=== PATIENT | female | born 1945 | race Asian ===

== ENCOUNTER 2017-09-03 18:34 | Emergency (ER) | payer OTHER ==
[~2017-09-03] VITALS: Ht 154.9 cm; Wt 44.0 kg
[~2017-09-03 18:34] MED LIST: ALEN35TA30; AMLO5TAB PO; LOSA25TA14 PO; METF500T2 PO; PRAV10TA40
[2017-09-03 18:36] VITALS: BP 115/67
--- NOTE | 2017-09-03 19:15 | NUR ---
PATIENT PRESENTS TO ED WITH COUGH X1 WK, FEVER AND CHILLS AT HOME X3 DAYS. RIGHT LOWER LOBE CRACKLES HEARD. PT AFEBRILE AT THIS TIME. DENIES N/V/D; SKIN IS PINK/WARM/DRY; AAOX4 WITH EVEN AND STEADY GAIT; LUNGS CLEAR BL; HR EVEN AND REGULAR; PT DENIES CP, SOB, AT THIS TIME; PATIENT STATES PAIN OF 0/10 AT THIS TIME; VSS; PATIENT POSITIONED FOR COMFORT; HOB ELEVATED; BEDRAILS UP X2; BED DOWN. ER MD MADE AWARE OF PT STATUS. CONTINUE TO MONITOR.
[2017-09-03 20:15] VITALS: BP 115/67
--- NOTE | 2017-09-03 20:15 | NUR ---
Patient discharged with v/s stable, afebrile, no SOB or dyspnea. Written and verbal after care instructions given and explained. Patient alert, oriented and verbalized understanding of instructions. Ambulatory with steady gait. All questions addressed prior to discharge. ID band removed. Patient advised to follow up with PMD. Rx of PREDNISONE AND AXIRTHROMYCIN given. Patient educated on indication of medication including possible reaction and side effects. Opportunity to ask questions provided and answered.
== END 2017-09-03 20:15 | disposition home or self-care (01) ==
LOC: MED 18:34
DX: R05 Cough (principal); R50.9 Fever, unspecified; I10 Essential (primary) hypertension; E11.9 Type 2 diabetes mellitus without complications; Z79.84 Long term (current) use of oral hypoglycemic drugs; Z88.6 Allergy status to analgesic agent
CPT/HCPCS: 71045; 82948; 99283; Q0092

== ENCOUNTER 2017-11-12 21:43 | Emergency (ER) | payer OTHER ==
[~2017-11-12] VITALS: Ht 152.4 cm; Wt 45.1 kg
[2017-11-12 21:43] VITALS: BP 134/81
--- NOTE | 2017-11-12 21:54 | NUR ---
PT AMBUALTED TO ER BED 10.
[2017-11-12] MEDS ORDERED: METF-430 PO (21:56)
--- NOTE | 2017-11-12 22:00 | NUR ---
PT PRESENTS TO ER C/O INTERMITTENT LEFT SIDE CHEST PAIN THAT RADIATES TO BACK X1 WEEK. PT HAS BEEN TAKING TYLENOL AT HOME FOR PAIN W/ MINIMAL RELIEF. NO SOB, BL BS CLEAR THROUGH OUT. PT IS LAYING IN BED, APPEARS TO BE IN NO APPARENT DISTRESS. PMH DM
[2017-11-12 22:28] LABS: BASOPHILS # (AUTO) 0.1 K/uL (0.00-0.22); BASOPHILS % (AUTO) 2.4 % (0.0-2.0); EOSINOPHILS # (AUTO) 0.4 K/uL (0-0.4); EOSINOPHILS % (AUTO) 7.5 % (0.0-4.0); HEMATOCRIT 42.4 % (36-48); HEMOGLOBIN 13.5 g/dL (12.0-16.0); LYMPHOCYTES # (AUTO) 1.7 K/uL (2.5-16.5); LYMPHOCYTES % (AUTO) 29.4 % (20.5-51.1); MEAN CORPUSCULAR HEMOGLOBIN 29 pg (27-31); MEAN CORPUSCULAR HGB CONC 32 g/dL (33-37); MEAN CORPUSCULAR VOLUME 89.8 fL (80-94); MONOCYTES # (AUTO) 0.6 K/uL (0.8-1.0); MONOCYTES % (AUTO) 10.3 % (1.7-9.3); NEUTROPHILS # (AUTO) 2.9 K/uL (1.8-7.7); NEUTROPHILS % (AUTO) 50.4 % (42.2-75.2); PLATELET COUNT (AUTO) 229 K/uL (140-450); RED BLOOD CELL COUNT(AUTO) 4.72 MIL/uL (4.20-5.40); RED CELL DISTRIBUTION WIDTH 13.4 % (11.6-13.7); WHITE BLOOD COUNT (AUTO) 5.8 K/uL (4.8-10.8)
[2017-11-12] MEDS ORDERED: MORPHINE SULFATE 4 MG/ML SYR IVP ONE (22:35)
[2017-11-12 22:45] LABS: ANION GAP 11.4 (8-16); CARBON DIOXIDE 29.3 mmol/L (21-32); CHLORIDE 105 mmol/L (98-107); GLUCOSE 224 mg/dL (74-106); POTASSIUM 4.7 mmol/L (3.5-5.1); SODIUM SERUM 141 mmol/L (136-145); UREA NITROGEN, BLOOD 15 mg/dL (7-18)
[2017-11-12 22:52] LABS: ALBUMIN 3.8 g/dL (3.4-5.0); ASPARTATE AMINOTRANSFERASE 13 U/L (15-37); TOTAL BILIRUBIN 0.3 mg/dL (0.0-1.0)
[2017-11-12 22:53] LABS: PROTHROMBIN TIME 10.2 secs (10.8-13.4)
[2017-11-12 23:17] VITALS: BP 130/76
--- NOTE | 2017-11-12 23:18 | NUR ---
Patient discharged with v/s stable. Written and verbal after care instructions given and explained. Patient alert, oriented and verbalized understanding of instructions. Ambulatory with steady gait. All questions addressed prior to discharge. ID band removed. Patient advised to follow up with PMD. Rx of prednisone, norco given. Patient educated on indication of medication including possible reaction and side effects. Opportunity to ask questions provided and answered.
== END 2017-11-12 23:18 | disposition home or self-care (01) ==
LOC: MED 21:43
DX: R07.89 Other chest pain (principal); R05 Cough; R06.02 Shortness of breath; E11.9 Type 2 diabetes mellitus without complications; I10 Essential (primary) hypertension; Z79.84 Long term (current) use of oral hypoglycemic drugs; Z79.899 Other long term (current) drug therapy; Z88.8 Allergy status to other drugs, medicaments and biological substances
CPT/HCPCS: 36415; 71045; 80053; 83880; 84484; 85025; 85610; 85730; 93005; 96374; 99285; J2270; Q0092

== ENCOUNTER 2023-09-24 20:06 | Emergency (ER) | payer OTHER ==
[~2023-09-24] VITALS: Ht 154.9 cm; Wt 41.7 kg
[~2023-09-24 20:06] MED LIST changes: -ALEN35TA30; +ALEN35TA54; -LOSA25TA14 PO; +LOSA25TA32 PO; +METF-430 PO; -METF500T2 PO
[2023-09-24 20:29] VITALS: BP 132/70; PULSE 81; RESP 16; TEMP 96.9; O2SAT 97
[2023-09-24 20:47] LABS: APPEARANCE,URINE CLEAR (CLEAR); BILIRUBIN,URINE NEGATIVE (NEGATIVE); BLOOD, URINE 3+ (NEGATIVE); COLOR,URINE YELLOW (YELLOW); LEUKOCYTE ESTERASE ,URINE 3+ (NEGATIVE); NITRITE, URINE NEGATIVE (NEGATIVE); PROTEIN,URINE NEGATIVE (NEGATIVE); UGLUCOSE NEGATIVE (NEGATIVE); UROBILINOGEN,URINE 0.2 EU/dL (0.2 - 1)
[2023-09-24 20:58] LABS: BACTERIA,URINE 10-30 (MOD) /HPF (None Seen); RBC,URINE 11-20 (MOD) /HPF (0-5); SQUAMOUS EPITHELIAL CELL,UR 0-3 (FEW) /LPF (0-3 (FEW))
[2023-09-24] MEDS ORDERED: CEFP200T20 PO (21:31)
[2023-09-24] MEDS ORDERED: cefTRIAXone 1,000 MG VIAL ONE (21:35)
[2023-09-24] MEDS: NACL 0.9% 500 ML IV ONE (22:06)
== END 2023-09-24 22:57 | disposition home or self-care (01) ==
LOC: MED 20:06
DX: N39.0 Urinary tract infection, site not specified (principal); R50.9 Fever, unspecified; E11.9 Type 2 diabetes mellitus without complications; I10 Essential (primary) hypertension; Z79.82 Long term (current) use of aspirin; Z88.5 Allergy status to narcotic agent; Z79.899 Other long term (current) drug therapy; Z79.4 Long term (current) use of insulin
CPT/HCPCS: 81001; 87086; 96365; 99284; J0696; 87186; J7030